=== PATIENT | female | born 1955 | race Caucasian/White ===

== ENCOUNTER 2024-10-16 14:30 | Emergency (ER) | payer MEDICARE ==
[~2024-10-16] VITALS: Ht 162.6 cm; Wt 99.8 kg
[~2024-10-16 14:30] MED LIST: ASPI-1197 PO; ATOR40TA71 PO; BENZ-226 PO; CEFD300C3 PO; GUAI5SYR4 PO; GUAI600T50 PO; ISOS10TA2 PO; LISI1TAB53 PO; OSEL75 PO
[2024-10-16] MEDS: DiphenhydrAMINE HCL 50 MG/ML VIAL IV ONE (14:50)
[2024-10-16] MEDS: Solu-medROL 125MG VIAL IVP ONE (14:50)
[2024-10-16] MEDS: FAMOTIDINE 20MG VIAL IV ONE (14:50)
[2024-10-16] MEDS ORDERED: PRED10TA23 PO (15:16)
[2024-10-16] MEDS ORDERED: LORA10TA7 PO (15:16)
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
[2024-10-16 15:28] VITALS: BP 149/73; PULSE 85; RESP 23; TEMP 97.3; O2SAT 96
== END 2024-10-16 15:42 | disposition home or self-care (01) ==
LOC: EDH 14:30
DX: T63.441A Toxic effect of venom of bees, accidental (unintentional), initial encounter (principal); I10 Essential (primary) hypertension; I25.10 Atherosclerotic heart disease of native coronary artery without angina pectoris; J44.9 Chronic obstructive pulmonary disease, unspecified; Z79.82 Long term (current) use of aspirin; Z79.899 Other long term (current) drug therapy; Z90.710 Acquired absence of both cervix and uterus; Y92.89 Other specified places as the place of occurrence of the external cause
CPT/HCPCS: 99284; 96374; 96375; J2919; J1200; J3490